=== PATIENT | female | born 1960 | race Caucasian/White ===

== ENCOUNTER → 2018-10-13 | Outpatient (CLI) | payer BC ==
--- NOTE | 2018-10-17 09:55 | MM ---
Reason for exam: screening (asymptomatic). Last mammogram was performed 2 years and 8 months ago. History: Patient is postmenopausal. Family history of breast cancer in grandmother. Took hormonal contraceptives for 1 year. Took estrogen for 1 year 6 months. MG 3D Screening Mammo W/Cad Bilateral CC and MLO view(s) were taken. Prior study comparison: February 01, 2016, bilateral MG 3d screening mammo w/cad. February 02, 2015, left breast MG diagnostic mammo LT w CAD. The breast tissue is heterogeneously dense. This may lower the sensitivity of mammography. No discrete abnormality. No significant changes when compared with prior studies. ASSESSMENT: Negative, BI-RAD 1 RECOMMENDATION: Routine screening mammogram of both breasts in 1 year.
== END | disposition home or self-care (01) ==
LOC: RADMAMWWP 15:06
PROVIDERS: ATTEND Family Medicine
DX: Z12.31 Encounter for screening mammogram for malignant neoplasm of breast (principal)
CPT/HCPCS: 77063; 77067

== ENCOUNTER → 2024-04-28 13:57 | Inpatient (IN) | payer BC ==
--- NOTE | 2024-05-28 13:39 | CT ---
EXAM: CT abdomen pelvis with contrast DATE OF EXAM: 04/28/24 INDICATION: Patient age:MARGARET CABRERA : 1960 Reason for study: RLQ Pain, COMPARISON: None, please note PACS downtime occurred during the radiologist interpretation of these i mages with limited priors/reports.. TECHNIQUE: CT abdomen pelvis with axial imaging and sagittal and coronal reformats following the administration of 100 cc of HOP626, IV contrast material. One or more CT dose reduction strategies were utilized dur ing this examination. Total DLP administered was 89 mGycm. FINDINGS: LOWER CHEST: Unremarkable ABDOMEN LIVER: Unremarkable GALLBLADDER AND BILE DUCTS: The gallbladder surgically absent. PANCREAS: Unremarkable. SPLEEN: Unremarkable. ADRENAL GLANDS: Unremarkable. KIDNEYS AND URETERS: No evidence of hydronephrosis or renal calculus. The ureters are unremarkable. R ight renal simple cyst measuring 65 mm. PELVIS BLADDER: Unremarkable REPRODUCTIVE: Unremarkable. ABDOMEN & PELVIS STOMACH AND BOWEL: Fat stranding changes around the right paracolic gutter just anterior to the colon . The colon does demonstrates some mild hyperemia and suspected ventral wall thickening up to 7 mm. E piploic appendage thought to be visualized on series 201 image 59. Stomach and duodenum are unremarka ble. No evidence of bowel obstruction. Third portion duodenal diverticulum. PERITONEUM: No evidence of pneumoperitoneum or free fluid. VASCULATURE: Mild atherosclerotic calcifications are present throughout the abdominal aorta and its b ranches. MUSCULOSKELETAL: Mild disc degeneration changes are present throughout the thoracolumbar spine. Grade 1 anterolisthesis of L4 on L5. LYMPH NODES: No gross evidence for lymphadenopathy. SOFT TISSUE/ABDOMINAL WALL: Right anterior abdominal wall cyst measuring 25 x 19 mm with peripheral c alcification. Fat-containing umbilical hernia. IMPRESSION: 1. Right paracolic gutter inflammation changes along the right. Overall findings suggest colitis wit h superimposed epiploic appendagitis also may be present. 2. Right anterior abdominal wall cyst measuring 25 x 19 mm with peripheral calcification consider ev aluation with nonemergent outpatient ultrasound.
== END | disposition home or self-care (01) | DRG 392 ==
LOC: 6NMEDSUR 13:57
PROVIDERS: ADMIT Family Medicine; ATTEND Family Medicine
DX: K57.90 Diverticulosis of intestine, part unspecified, without perforation or abscess without bleeding (principal); K52.9 Noninfective gastroenteritis and colitis, unspecified; K59.00 Constipation, unspecified; E66.9 Obesity, unspecified; Z88.2 Allergy status to sulfonamides; K42.9 Umbilical hernia without obstruction or gangrene
CPT/HCPCS: 74177; 80053; 81003; 82150; 83690; 85025; 86140; 96360; 99285

== ENCOUNTER → 2024-04-28 | Emergency (ER) | payer BC ==
[~2024-04-28] MED LIST: ACETAMINOPHEN TAB 325 MG TAB ONE; ALPRAZolam 0.25 MG TAB ONE; HYDROcodone/APAP 5-325MG 1 EACH TAB ONE; HYDROmorphone 1 MG/ML 1 ML SYRINGE ONE; ONDANSETRON 4 MG/2 ML VIAL ONE; POTASSIUM CHLORIDE ER 20 MEQ TAB.ER PO ONE; SODIUM CHLORIDE 0.9% 1,000 ML BAG ONE; SODIUM CHLORIDE 0.9% 50 ML BAG IV ONE; SODIUM CHLORIDE 0.9% 500 ML BAG ONE; cefTRIAXone 1 GM VIAL ONE; cefTRIAXone IN SWFI 1,000 MG/10 ML SYRINGE IVP ONE; metroNIDAZOLE-NS PMX 100 ML ONE
== END ==
LOC: CANPREER → EC 04:40 → 6NMEDSUR 13:51 → UNDOADMOB 13:51 → UNDODISOB 05-01 13:24
DX: Z53.9 Procedure and treatment not carried out, unspecified reason (principal)
CPT/HCPCS: 80048; 85025

== ENCOUNTER → 2024-08-13 | Outpatient (CLI) | payer MEDICARE ==
--- NOTE | 2024-08-15 01:33 | MR ---
INDICATION: Patient age:Female; 64 years old; Reason for study: M47.816 SPONDYLOSIS W/O MYELOPATHY OR RADIC M54.50; [facility]. COMPARISONS: CT abdomen pelvis 05/28/2024, lumbar spine radiograph 06/02/2024. TECHNIQUE: Multi planar, multi sequence imaging was performed utilizing: T1-weighted, T2-weighted, a nd turbo inversion recovery imaging of the lumbar spine. The patient was not given contrast. FINDINGS: The lumbar vertebral bodies do have preserved heights. Mild retrolisthesis of L5 on S1. Mu ltilevel disc desiccation is present. Prominent disc height loss at L5-S1. Type I Modic changes invol ving the endplates around the L2-L3 disc anteriorly. The conus medullaris and the distal spinal cord do appear unremarkable with regards to their signal intensity and morphology. T12-L1: No significant disc pathology is identified. The spinal canal and neural foramen are patent L1-L2: No significant disc pathology is identified. The spinal canal and neural foramen are patent. L2-L3: Broad-based disc bulge with minimal ligamentum flavum buckling and bilateral facet arthropath y. There is also minimal central canal stenosis. Mild bilateral neuroforaminal stenosis. L3-L4: Broad-based disc bulge with ligamentum flavum and bilateral facet arthropathy degenerative to mild central canal stenosis. Mild bilateral neuroforaminal stenosis. L4-L5: Broad-based disc bulge with ligamentum flavum buckling and bilateral facet arthropathy contrib parth to mild to moderate central canal stenosis. Mild bilateral neural foraminal stenosis. L5-S1: Mild retrolisthesis. Broad-based disc bulge with annular fissure. No significant effacement of the anterior thecal sac. Bilateral facet arthropathy. Moderate bilateral neuroforaminal stenosis. Other significant findings: Bilateral T2 hyperintense renal cysts identified largest within the right kidney measuring up to 6.2 cm. IMPRESSION: 1. Multilevel disc degeneration with associated osteoarthritic changes. No disc herniation identifie d. Most prominent at L4-L5 due to disc bulge, ligamentum flavum buckling and bilateral facet arthropa thy resulting in mild to moderate central canal stenosis. 2. Mild retrolisthesis L5 on S1. [facility], , 08/15/2024 1:29 AM
== END | disposition home or self-care (01) ==
LOC: RADMRIMAIN 18:52
PROVIDERS: ATTEND Orthopaedic Surgery
DX: M51.369 Other intervertebral disc degeneration, lumbar region without mention of lumbar back pain or lower extremity pain (principal); M47.816 Spondylosis without myelopathy or radiculopathy, lumbar region; M43.17 Spondylolisthesis, lumbosacral region; N28.1 Cyst of kidney, acquired; M99.73 Connective tissue and disc stenosis of intervertebral foramina of lumbar region
CPT/HCPCS: 72148

== ENCOUNTER → 2024-08-23 | Outpatient (CLI) | payer MEDICARE ==
--- NOTE | 2024-08-23 11:50 | US ---
EXAMINATION TYPE: US abdomen limited DATE OF EXAM: 08/23/2024 COMPARISON: CT dated 04/28/2024 CLINICAL INDICATION: Female, 64 years old with history of R19.07 GENERALIZED INTRA-ABD AND PELVIC SWE LLING; abd wall cyst on prior CT TECHNIQUE: several images taken at area of concern FINDINGS: there is a 1.9x2.1cm calcified cystic area within the right rectus abdominis muscle IMPRESSION: Nonspecific cystic mass within the right rectus abdominis with wall calcification simila r in size to prior CT. [facility], , 08/23/2024 11:48 AM
== END | disposition home or self-care (01) ==
LOC: RADUSWWP 07:22
PROVIDERS: ATTEND Family Medicine
DX: R19.07 Generalized intra-abdominal and pelvic swelling, mass and lump (principal)
CPT/HCPCS: 76705

== ENCOUNTER → 2024-08-24 | Outpatient (CLI) | payer MEDICARE ==
--- NOTE | 2024-08-26 18:36 | MM ---
Reason for Exam: Screening (asymptomatic). Last mammogram was performed 5 year(s) and 11 month(s) ago. Patient History: Menarche at age 8. First Full-Term at age 21. Postmenopausal. Estrogen for 1 year, 6 months. Patient used Hormonal Contraceptives for 1 year. Maternal grandmother had breast cancer. Risk Values: Carmina 5 year model risk: 1.6%. NCI Lifetime model risk: 5.9%. Prior Study Comparison: 02/02/2015 Left Diagnostic Mammogram, [facility]. 02/01/2016 Bilateral Screening Mammogram, [facility]. 10/13/2018 Bilateral Screening Mammogram, [facility]. Tissue Density: There are scattered areas of fibroglandular density. Findings: Analyzed By CAD. Suspicious new 9 mm nodule upper-outer quadrant left breast middle to posterior depth. Otherwise, no significant change. Overall Assessment: Incomplete: need additional imaging evaluation, BI-RAD 0 Management: Special View Mammogram of the left breast. Diagnostic Breast Ultrasound of the left breast. Additional view 3-D ML view. Subsequent whole left breast ultrasound. [facility] will attempt to contact patient to return for supplemental views and ultrasound. [facility], , 08/26/2024 6:33 PM. Electronically signed and approved by: Michael Manuel M.D. Radiologist
== END | disposition home or self-care (01) ==
LOC: RADMAMWWP 16:33
PROVIDERS: ATTEND Family Medicine
DX: Z12.31 Encounter for screening mammogram for malignant neoplasm of breast (principal); Z78.0 Asymptomatic menopausal state; Z80.3 Family history of malignant neoplasm of breast; R92.323 Mammographic fibroglandular density, bilateral breasts
CPT/HCPCS: 77063; 77067

== ENCOUNTER → 2024-09-02 | Outpatient (CLI) | payer MEDICARE ==
--- NOTE | 2024-09-02 08:56 | MM ---
Reason for Exam: Additional evaluation requested from abnormal screening. Last screening mammogram was performed less than 1 month ago. Patient History: Menarche at age 8. First Full-Term at age 21. Postmenopausal. Estrogen for 1 year, 6 months. Patient used Hormonal Contraceptives for 1 year. Maternal grandmother had breast cancer. Risk Values: Carmina 5 year model risk: 1.6%. NCI Lifetime model risk: 5.9%. Prior Study Comparison: 08/25/2014 Left Diagnostic Mammogram, [facility]. 02/02/2015 Left Diagnostic Mammogram, [facility]. 02/01/2016 Bilateral Screening Mammogram, [facility]. 10/13/2018 Bilateral Screening Mammogram, [facility]. 08/24/2024 Bilateral MG 3D screening mammo w/cad, [facility]. Tissue Density: Left: There are scattered areas of fibroglandular density. Findings: Analyzed By CAD. Heart appears stable. There is persistence of an irregular rounded hyperdense area within the upper outer left breast measuring 0.9 cm located 7 cm from the nipple. Ultrasound recommended for additional evaluation. Overall Assessment: Incomplete: need additional imaging evaluation, BI-RAD 0 Management: Diagnostic Breast Ultrasound of the left breast. A negative mammogram report should not preclude additional follow up of suspicious palpable abnormalities. Patient should continue monthly self breast exam. A clinical breast exam by your physician is recommended on an annual basis and results should be correlated with mammographic findings. Note on Carmina scores and lifetime risk: 1. A Carmina score greater than 3% is considered moderate risk. If this is the case, consider specialist referral to assess eligibility for a risk reducing agent. 2. If overall lifetime risk for the development of breast cancer is 20% or higher, the patient may qualify for future screening with alternating mammogram and breast MRI. [facility], , 09/02/2024 8:52 AM. Electronically signed and approved by: Jonn Esposito D.O. Radiologis
== END | disposition home or self-care (01) ==
LOC: RADMAMWWP 08:06
PROVIDERS: ATTEND Family Medicine
DX: R92.8 Other abnormal and inconclusive findings on diagnostic imaging of breast (principal); Z78.0 Asymptomatic menopausal state; Z80.3 Family history of malignant neoplasm of breast; R92.322 Mammographic fibroglandular density, left breast
CPT/HCPCS: 77065; 76642; G0279; 77061

== ENCOUNTER → 2024-11-30 | Outpatient (CLI) | payer MEDICARE ==
--- NOTE | 2024-11-30 11:15 | MM ---
Reason for Exam: Clinical finding. Last screening mammogram was performed 3 month(s) ago. Patient History: Menarche at age 8. First Full-Term at age 21. Postmenopausal. Estrogen for 1 year, 6 months. Patient used Hormonal Contraceptives for 1 year. Maternal grandmother had breast cancer. Risk Values: Carmina 5 year model risk: 1.6%. NCI Lifetime model risk: 5.9%. Prior Study Comparison: 10/13/2018 Bilateral Screening Mammogram, [facility]. 08/24/2024 Bilateral MG 3D screening mammo w/cad, [facility]. 09/02/2024 Left MG 3D work up w/cad , [facility]. Tissue Density: Left: There are scattered areas of fibroglandular density. Findings: Analyzed By CAD. There is a spiculated mass redemonstrated upper outer left breast currently measuring 9.1 mm versus 7.6 mm previously. The lesion is approximately 7.3 cm from the nipple and is within the upper outer quadrant. No new masses are seen. Ultrasound is recommended. Overall Assessment: Incomplete: need additional imaging evaluation, BI-RAD 0 Management: Diagnostic Breast Ultrasound of the left breast. . Results were given to the patient verbally at the time of exam. Patient should continue monthly self-breast exams. A clinical breast exam by your physician is recommended on an annual basis. This exam should not preclude additional follow-up of suspicious palpable abnormalities. Note on Carmina scores and lifetime risk: 1. A Carmian score greater than 3% is considered moderate risk. If this is the case, consider specialist referral to assess eligibility for a risk reducing agent. 2. If overall lifetime risk for the development of breast cancer is 20% or higher, the patient may qualify for future screening with alternating mammogram and breast MRI. [facility], , 11/30/2024 11:12 AM. Electronically signed and approved by: Matt Key M.D. Radiologis
--- NOTE | 2024-11-30 12:02 | USB ---
Reason for Exam: Follow-up at short interval from prior study. Patient History: Menarche at age 8. First Full-Term at age 21. Postmenopausal. Estrogen for 1 year, 6 months. Patient used Hormonal Contraceptives for 1 year. Maternal grandmother had breast cancer. Risk Values: Carmina 5 year model risk: 1.6%. NCI Lifetime model risk: 5.9%. Technique: Method: Targeted. Prior Study Comparison: 10/13/2018 Bilateral Screening Mammogram, [facility]. 08/24/2024 Bilateral MG 3D screening mammo w/cad, [facility]. 09/02/2024 Left MG 3D work up w/cad , [facility]. Findings: The upper outer quadrant of the left breast, the axilla of the left breast and the retroareolar of the left breast were scanned. Hypoechoic mass with slightly irregular margins is slightly larger in size than on prior study and currently measures 9 x 7 mm versus 8 x 7 mm previously. This mass is felt to reflect malignancy until proven otherwise and tissue diagnosis with ultrasound-guided core biopsy is advised. No additional masses seen within the imaged field. Left axilla is free of adenopathy.. Overall Assessment: Highly suggestive of malignancy, BI-RAD 5 Management: Ultrasound Core Biopsy of the left breast. A clinical breast exam by your physician is recommended on an annual basis and results should be correlated with mammographic findings. This exam should not preclude additional follow-up of suspicious palpable abnormalities. Results were given to the patient verbally at the time of exam. [facility], , 11/30/2024 11:58 AM. Electronically signed and approved by: Matt Key M.D. Radiologis
== END | disposition home or self-care (01) ==
LOC: RADMAMWWP 10:50
PROVIDERS: ATTEND Family Medicine
DX: R92.323 Mammographic fibroglandular density, bilateral breasts (principal); N63.20 Unspecified lump in the left breast, unspecified quadrant; Z78.0 Asymptomatic menopausal state; Z92.0 Personal history of contraception; Z80.3 Family history of malignant neoplasm of breast
CPT/HCPCS: 77061; 77065

== ENCOUNTER → 2025-01-04 | Outpatient (CLI) | payer MEDICARE ==
--- NOTE | 2025-01-10 11:13 | BMR ---
EXAM DATE: 01/04/2025 EXAM DESCRIPTION: MRI-Breast Bilat (W/WO Contrast) INDICATION: Left breast carcinoma. Initial staging. COMPARISON: Prior mammogram and ultrasound examination dated 08/24/2024 and 09/02/2024 CONTRAST: Seven cc Gadavist contrast material. TECHNIQUE: Multi sequence multiplanar MR imaging of the breasts was obtained. Subsequently, after the uneventful intravenous administration of Gadavist contrast material, 6 dynamic sequences were then obtained. Post processing was performed utilizing a [employer] CAD workstation. FINDINGS: The breasts are composed of scattered fibroglandular tissue. There is mild background parenchymal enhancement identified. There is no axillary or internal mammary lymphadenopathy. Lymph nodes with benign morphology are stable in the axillary regions. No focal skin thickening or nipple retraction. The bone marrow signal intensity is unremarkable. No adenopathy in the visualized mediastinum. T2 weighted images demonstrated no abnormal cystic lesion in either breast. Post contrast images demonstrated a 0.9 x 0.7 x 0.8 cm irregular enhancing mass in the left breast at 1 o'clock position 7 cm posterior to the nipple corresponding to the biopsy-proven primary. There is no evidence of multifocal or multicentric disease. No abnormal enhancement in the right breast to suggest malignancy. Several foci of varying degree of enhancements in both breasts are likely related to benign background parenchyma. There is no abnormal signal or enhancement in the chest wall or subcutaneous tissue. IMPRESSION: 1. A 0.9 cm enhancing mass in the left breast at 1 o'clock position 7 cm posterior to the nipple consistent with biopsy-proven primary. 2. No axillary or internal mammary lymphadenopathy. 3. No MR evidence of malignancy in the right breast. Final assessment: BI-RADS category 6: Known malignancy: Appropriate management is recommended. MTDD
== END | disposition home or self-care (01) ==
LOC: RADMRIMAIN 06:03
PROVIDERS: ATTEND Family Medicine
DX: C50.412 Malignant neoplasm of upper-outer quadrant of left female breast (principal); N63.21 Unspecified lump in the left breast, upper outer quadrant
CPT/HCPCS: 77049; A9585